=== PATIENT | female | born 1990 | race Caucasian/White ===

== ENCOUNTER 2016-07-28 20:11 | Emergency (ER) | payer MEDICAID, OTHER ==
[2016-07-28] MEDS ORDERED: Sodium Chloride 0.9% 1,000 ML IV ONE ×2 (21:07→21:51)
[2016-07-28] MEDS ORDERED: Famotidine 20 MG/2 ML SDV IVPUSH ONE (21:09)
[2016-07-28] MEDS ORDERED: Ondansetron 4 MG/2 ML SDV IV ONE (21:09)
--- NOTE | 2016-07-28 21:14 | EDM.PDOC ---
ED HPI GI/ABDOMINAL - General Chief Complaint: Abdominal Pain Stated Complaint: STOMACH PAIN [id number] Time Seen by Provider: 07/28/16 21:13 Source of Information: Reports: Patient History Limitations: Reports: No limitations - History of Present Illness INITIAL COMMENTS - FREE TEXT/NARRATIVE: general abdominal pain vomiting diarrhea today wit sudden onset on arising. , chills. LMP 2 weeks ago cycle irregular. Unable to keep anything down. Here from [place] for wedding, planning to leave in am. S) concerned as he had recent ruptured appendix and similar symptoms. Location: generalized Quality: Reports: burning. Denies: radiating Associated Symptoms (-Female): Reports: diarrhea, fever/chills, nausea/ vomiting - Related Data Allergies/ADRs: Allergies Allergy/AdvReac Type Severity Reaction Status Date / Time No Known Allergies Allergy Verified 07/28/16 20:48 Home Meds: Home Meds . [No Known Home Meds] 07/28/16 [History] Past Medical History - Past Health History Medical/Surgical History: Denies Medical/Surgical History Social & Family History - Family History Family Medical History: Noncontributory - Tobacco Use Smoking Status *Q: Never Smoker - Caffeine Use Caffeine Use: Reports: None - Recreational Drug Use Recreational Drug Use: No ED ROS GENERAL - Review of Systems Review Of Systems: See Below Constitutional: Reports: chills, decreased appetite HEENT: Reports: No symptoms Respiratory: Reports: No Symptoms Cardiovascular: Reports: No symptoms GI/Abdominal: Reports: Abdominal pain, Diarrhea, Decreased appetite, Vomiting : Reports: no symptoms Musculoskeletal: Reports: no symptoms Skin: Reports: no symptoms Neurological: Reports: No Symptoms ED EXAM, GI/ABD - Physical Exam Exam: See Below Exam Limited By: No limitations General Appearance: moderate distress Eyes: bilateral: normal appearance Ears: normal external exam Nose: normal inspection Throat/Mouth: No: Normal lips (dry) Head: atraumatic, normocephalic Neck: normal inspection Respiratory/Chest: no respiratory distress, lungs clear, normal breath sounds Cardiovascular: normal peripheral pulses, regular rate, rhythm GI/Abdominal: soft, hyperactive bowel sounds, tenderness (general). No: distention Course - Vital Signs Last Recorded V/S: Last Vital Signs Temp 100 F 07/28/16 22:32 Pulse 88 07/28/16 22:32 Resp 16 07/28/16 22:32 BP 97/55 L 07/28/16 22:32 Pulse Ox 99 07/28/16 22:32 - Orders/Labs/Meds Labs: Laboratory Tests 07/28/16 07/28/16 07/28/16 Range/Units 20:43 20:43 21:10 WBC 9.7 (5.0-10.0) 10^3/uL RBC 4.55 (4.2-5.4) 10^6/uL Hgb 13.8 (12.0-16.0) g/dL Hct 40.5 (37.0-47.0) % MCV 89.0 (80-100) fL MCH 30.3 (27.0-34.0) pg MCHC 34.1 (33.0-35.0) g/dL Plt Count 187 (150-450) 10^3/uL Neut % (Auto) 92.8 H (42.2-75.2) % Lymph % (Auto) 2.9 L (20.5-50.1) % Knox % (Auto) 4.0 (2-8) % Eos % (Auto) 0.2 L (1.0-3.0) % Baso % (Auto) 0.1 (0.0-1.0) % Sodium (135-145) mmol/L Potassium (3.6-5.0) mmol/L Chloride (101-111) mmol/L Carbon Dioxide (21.0-31.0) mmol/L Anion Gap BUN (7-18) mg/dL Creatinine (0.6-1.3) mg/dL Est Cr Clr Drug Dosing mL/min Estimated GFR (MDRD) BUN/Creatinine Ratio Glucose (74-105) mg/dL Calcium (8.4-10.2) mg/dl Total Bilirubin (0.2-1.0) mg/dL AST (10-42) IU/L ALT (10-60) IU/L Alkaline Phosphatase (42-121) IU/L Total Protein (6.7-8.2) g/dl Albumin (3.2-5.5) g/dl Globulin Albumin/Globulin Ratio Amylase (28-100) U/L Lipase (22-51) U/L Urine Color Yellow (YELLOW) Urine Appearance Slightly cloudy (CLEAR) Urine pH 5.0 (5.0-9.0) Ur Specific Temple 1.025 (1.005-1.030) Urine Protein Negative (NEGATIVE) Urine Glucose (UA) Negative (NEGATIVE) Urine Ketones 40 H (NEGATIVE) Urine Occult Blood Moderate H (NEGATIVE) Urine Nitrite Negative (NEGATIVE) Urine Bilirubin Negative (NEGATIVE) Urine Urobilinogen 0.2 (0.2-1.0) mg/dL Ur Leukocyte Esterase Negative (NEGATIVE) Urine RBC 5-10 H /HPF Urine WBC 10-20 H (0-5/HPF) /HPF Ur Epithelial Cells Many H /HPF Urine Bacteria Many H (0-FEW/HPF) /HPF Urine Other See note Urine HCG, Qual Negative 07/28/16 Range/Units 21:10 WBC (5.0-10.0) 10^3/uL RBC (4.2-5.4) 10^6/uL Hgb (12.0-16.0) g/dL Hct (37.0-47.0) % MCV (80-100) fL MCH (27.0-34.0) pg MCHC (33.0-35.0) g/dL Plt Count (150-450) 10^3/uL Neut % (Auto) (42.2-75.2) % Lymph % (Auto) (20.5-50.1) % Knox % (Auto) (2-8) % Eos % (Auto) (1.0-3.0) % Baso % (Auto) (0.0-1.0) % Sodium 137 (135-145) mmol/L Potassium 3.7 (3.6-5.0) mmol/L Chloride 105 (101-111) mmol/L Carbon Dioxide 23.0 (21.0-31.0) mmol/L Anion Gap 12.7 BUN 17 (7-18) mg/dL Creatinine 0.7 (0.6-1.3) mg/dL Est Cr Clr Drug Dosing 125.01 mL/min Estimated GFR (MDRD) > 60 BUN/Creatinine Ratio 24.28 Glucose 122 H (74-105) mg/dL Calcium 8.9 (8.4-10.2) mg/dl Total Bilirubin 0.7 (0.2-1.0) mg/dL AST 18 (10-42) IU/L ALT 13 (10-60) IU/L Alkaline Phosphatase 33 L (42-121) IU/L Total Protein 7.6 (6.7-8.2) g/dl Albumin 4.6 (3.2-5.5) g/dl Globulin 3.0 Albumin/Globulin Ratio 1.53 Amylase 43 (28-100) U/L Lipase 22 (22-51) U/L Urine Color (YELLOW) Urine Appearance (CLEAR) Urine pH (5.0-9.0) Ur Specific Temple (1.005-1.030) Urine Protein (NEGATIVE) Urine Glucose (UA) (NEGATIVE) Urine Ketones (NEGATIVE) Urine Occult Blood (NEGATIVE) Urine Nitrite (NEGATIVE) Urine Bilirubin (NEGATIVE) Urine Urobilinogen (0.2-1.0) mg/dL Ur Leukocyte Esterase (NEGATIVE) Urine RBC /HPF Urine WBC (0-5/HPF) /HPF Ur Epithelial Cells /HPF Urine Bacteria (0-FEW/HPF) /HPF Urine Other Urine HCG, Qual Meds: Medications Discontinued Medications Generic Name Dose Route Start Last Admin Trade Name Freq PRN Reason Stop Dose Admin Famotidine 20 mg 07/28/16 21:09 07/28/16 21:18 Pepcid IVPUSH 07/28/16 21:10 20 mg ONETIME ONE Administration Hydromorphone HCl 1 mg 07/28/16 21:59 07/28/16 22:04 Dilaudid IVPUSH 07/28/16 22:00 1 mg ONETIME ONE Administration Sodium Chloride 1,000 mls @ 999 mls/hr 07/28/16 21:07 07/28/16 21:18 Normal Saline IV 07/28/16 22:07 999 mls/hr .BOLUS ONE Administration Sodium Chloride 1,000 mls @ 999 mls/hr 07/28/16 21:51 07/28/16 21:53 Normal Saline IV 07/28/16 22:51 999 mls/hr .BOLUS ONE Administration Iopamidol 100 ml 07/28/16 21:50 07/28/16 21:58 Isovue-300 (61%) IVPUSH 07/28/16 21:51 100 ml ONETIME ONE Administration Ondansetron HCl 4 mg 07/28/16 21:09 07/28/16 21:18 Zofran IV 07/28/16 21:10 4 mg ONETIME ONE Administration Ondansetron HCl Confirm 07/28/16 22:54 07/28/16 22:57 Zofran Odt Administered 07/28/16 22:55 Not Given Dose 12 mg .ROUTE .[facility] ONE - Radiology Interpretation Free Text/Narrative:: CT No appendicitis, gastroenteritis Departure - Departure Time of Disposition: 22:53 Disposition: Home, Self-Care 01 Condition: good Clinical Impression: Gastroenteritis Instructions: Viral Gastroenteritis, Adult, [id number], Nausea and Vomiting, Adult, [id number] Forms: ED Department Discharge Additional Instructions: zofran every 4 hours for 12 hours then every 6 hours # 9 light diet advance as tolerated. , Low fat no milk for 24 hours follow up as needed
[2016-07-28 21:38] LABS: CHLORIDE,CL 105 mmol/L (101-111); SODIUM,NA 137 mmol/L (135-145)
[2016-07-28] MEDS ORDERED: Iopamidol 612 MG/ML 100 ML Bottle IVPUSH ONE (21:50)
[2016-07-28] MEDS ORDERED: HYDROmorphone 1 MG/ML Syringe IVPUSH ONE (21:59)
[2016-07-28 22:33] VITALS: BP 97/55
[2016-07-28] MEDS ORDERED: Ondansetron 4 MG Tab.DIS PO ONE (22:54)
[2016-07-28] MEDS ORDERED: Ondansetron 4 MG Tab.DIS ONE (22:54)
== END 2016-07-28 23:02 | disposition home or self-care (01) ==
LOC: DL.ED 20:11
DX: K52.9 Noninfective gastroenteritis and colitis, unspecified (principal)
CPT/HCPCS: 36415; 74177; 80053; 81001; 81025; 82150; 83690; 85025; 96365; 96366; 96375; 99284; J1170; J2405; J7030; Q9967; A9270-GY; S0028